=== PATIENT | female | born 1950 | race Caucasian/White ===

== ENCOUNTER 2016-09-19 13:17 | Outpatient (CLI) | payer MEDICARE | END 2016-09-19 13:18 | disposition home or self-care (01) | DX: M16.12 Unilateral primary osteoarthritis, left hip (principal); M25.552 Pain in left hip ==

== ENCOUNTER 2018-01-28 18:50 | Outpatient (CLI) | payer MEDICARE ==
--- NOTE | 2018-01-29 10:38 | Ultrasound Report ---
Procedure Date: 01/28/2018 Accession Number: [id number] / [id number] Procedure: US - Pelvic w/Transvaginal CPT Code: FULL RESULT: EXAM: Pelvic w/Transvaginal DATE: 01/28/2018 8:11 PM CLINICAL HISTORY: UNINARY TRACT INFECTION,RETENTION OF URINE,UNSPECI COMPARISON: 12/24/2015 TECHNIQUE: Realtime transabdominal imaging performed to identify the uterus and adnexa and as an overview of other pelvic structures, followed by transvaginal imaging for better assessment of the endometrium and/or adnexa, with static image documentation. FINDINGS: Uterus: 6.6 x 4.9 x 3.2 cm, volume 54 cc. Anteverted position. Normal overall size and echotexture. Masses: Anterior intramural calcification, likely representing a degenerated leiomyoma. Endometrium: 3 mm. Normal. Cervix: Unremarkable. Right Ovary/Adnexa: 1.8 x 0.9 x 0.9 cm, volume 1 cc. Normal echotexture. Blood flow is present. No adnexal mass is seen. Left Ovary/Adnexa: 1.8 x 1.4 x 0.9 cm, volume 1 cc. Normal echotexture. Blood flow is present. No adnexal mass is seen. Free Fluid: None. Other: None. IMPRESSION: Anterior degenerated leiomyoma. RAD[facility]
== END 2018-01-28 18:51 | disposition home or self-care (01) ==
LOC: DI 18:50
PROVIDERS: ATTEND Specialist
DX: D25.9 Leiomyoma of uterus, unspecified (principal); N39.0 Urinary tract infection, site not specified; R33.9 Retention of urine, unspecified; R39.89 Other symptoms and signs involving the genitourinary system; R82.90 Unspecified abnormal findings in urine
CPT/HCPCS: 76830; 76856

== ENCOUNTER 2018-01-28 19:15 | Outpatient (CLI) | payer MEDICARE ==
--- NOTE | 2018-01-29 10:34 | Ultrasound Report ---
Procedure Date: 01/28/2018 Accession Number: [id number] / [id number] Procedure: US - Retroperitoneal CPT Code: FULL RESULT: EXAM: Retroperitoneal DATE: 01/28/2018 8:11 PM CLINICAL HISTORY: UTI, URINE RETENTION COMPARISON: None. TECHNIQUE: Real-time scanning was performed with static images obtained. FINDINGS: Right Kidney: 11.3 x 5.2 x 4.2 cm. Normal echotexture with no stones, contour-deforming masses, or hydronephrosis. Left Kidney: 10.9 x 6.5 x 5.5 cm. Normal echotexture with no stones, contour-deforming masses, or hydronephrosis.] Bladder: Bilateral jets seen. The prevoid bladder volume was 310 cc. The postvoid bladder volume was 20 cc. IMPRESSION: Normal renal ultrasound. [facility]
== END 2018-01-28 23:59 | disposition home or self-care (01) ==
LOC: DI 19:15
PROVIDERS: ATTEND Specialist
DX: N39.0 Urinary tract infection, site not specified (principal); R33.9 Retention of urine, unspecified; R39.89 Other symptoms and signs involving the genitourinary system; R82.90 Unspecified abnormal findings in urine
CPT/HCPCS: 76770

== ENCOUNTER 2018-07-17 09:55 | Outpatient (CLI) | payer MEDICARE | END 2018-07-17 09:56 | disposition EMS.NT | LOC: EMS 09:55 | PROVIDERS: ATTEND Surgery | DX: R03.0 Elevated blood-pressure reading, without diagnosis of hypertension (principal) ==

== ENCOUNTER 2018-10-02 14:10 | Outpatient (CLI) | payer MEDICARE, OTHER ==
--- NOTE | 2018-10-04 16:42 | XRAY Report ---
Reason: PAIN OF TOE OF LEFT FOOT Procedure Date: 10/02/2018 Accession Number: [id number] / [id number] Procedure: XR - Toe(s) LT CPT Code: FULL RESULT: EXAM: LEFT TOE RADIOGRAPHY EXAM DATE: 10/02/2018 02:32 PM. CLINICAL HISTORY: PAIN OF TOE OF LEFT FOOT. COMPARISON: None. TECHNIQUE: 3 views. FINDINGS: Bones: Normal. No fracture or bone lesion. Joints: Normal. No subluxations. Soft Tissues: Normal. No soft tissue swelling. IMPRESSION: Normal toe radiography. [facility]
== END 2018-10-02 14:11 | disposition home or self-care (01) ==
LOC: DI 14:10
PROVIDERS: ATTEND Family Medicine
DX: M79.675 Pain in left toe(s) (principal)
CPT/HCPCS: 73660

== ENCOUNTER 2019-02-18 15:06 | Outpatient (CLI) | payer MEDICARE, OTHER ==
--- NOTE | 2019-02-18 23:57 | XRAY Report ---
Reason: COUGH Procedure Date: 02/18/2019 Accession Number: [id number] / [id number] Procedure: XR - Chest 2 View X-Ray CPT Code: 00249 FULL RESULT: EXAM: CHEST RADIOGRAPHY EXAM DATE: 02/18/2019 03:23 PM. CLINICAL HISTORY: COUGH. COMPARISON: None. TECHNIQUE: 2 views. FINDINGS: Lungs/Pleura: No focal opacities evident. No pleural effusion. No pneumothorax. Normal volumes. Mediastinum: Heart and mediastinal contours are unremarkable. Other: None. IMPRESSION: Normal 2-view chest radiography. RAD[facility]
== END 2019-02-18 15:07 | disposition home or self-care (01) ==
LOC: DI 15:06
PROVIDERS: ATTEND Nurse Practitioner Family
DX: R05 Cough (principal)
CPT/HCPCS: 71046

== ENCOUNTER 2019-04-06 08:40 | Outpatient (CLI) | payer MEDICARE, OTHER ==
--- NOTE | 2019-04-07 13:10 | XRAY Report ---
Reason: CERVICALGIA Procedure Date: 04/06/2019 Accession Number: [id number] / [id number] Procedure: XRS - Cervical Spine 2 View CPT Code: FULL RESULT: EXAM: CERVICAL SPINE RADIOGRAPHY EXAM DATE: 04/06/2019 08:57 AM. CLINICAL HISTORY: Cervicalgia. Large heavy object fell on patient's neck on right side. Neck pain. Point tenderness over C6 and C7. COMPARISONS: None. TECHNIQUE: 3 views. FINDINGS: Alignment: Slight levoscoliosis of the cervical spine. Bones: No acute fracture. Relative lucent area seen overlying the right C4 and C5 transverse processes. Findings not confirmed on the lateral view. Visualized odontoid is intact. Degenerative spurring. Disks: Mild to moderate multilevel disk space narrowing of the cervical spine greatest at C4-C5, C5-C6 and C6-C7. Facets: Mild cervical facet arthropathy. Soft Tissues: Prevertebral soft tissue are normal. Lung apices are clear. IMPRESSION: 1. No acute cervical spine abnormalities are identified. 2. Degenerative changes of the cervical spine. 3. Relative lucent area overlying the right C4 and C5 transverse processes. Findings which may be artifact related to the levoscoliosis. Osseous lucent lesions not excluded. If further detail is warranted, consider CT cervical spine. RAD[facility]
== END 2019-04-06 08:41 | disposition home or self-care (01) ==
LOC: DI.S 08:40
PROVIDERS: ATTEND Nurse Practitioner Family
DX: M50.321 Other cervical disc degeneration at C4-C5 level (principal); M47.812 Spondylosis without myelopathy or radiculopathy, cervical region
CPT/HCPCS: 72040

== ENCOUNTER 2019-10-10 14:55 | Outpatient (CLI) | payer MEDICARE, OTHER ==
--- NOTE | 2019-10-11 15:09 | XRAY Report ---
Reason: PAIN IN RIGHT HIP Procedure Date: 10/10/2019 Accession Number: [id number] / [id number] Procedure: XR - Hip w/Pelvis 2-3V RT CPT Code: Final Report FULL RESULT: EXAM: RIGHT HIP RADIOGRAPHY EXAM DATE: 10/10/2019 03:32 PM. CLINICAL HISTORY: PAIN IN RIGHT HIP. COMPARISON: None. TECHNIQUE: 2 views. FINDINGS: Bones: Normal. No fractures or bone lesion. Joints: Normal. No dislocation. The hip joint space is preserved. Soft Tissues: Normal. No soft tissue swelling. IMPRESSION: Normal right hip radiography. [facility]
== END 2019-10-10 14:56 | disposition home or self-care (01) ==
LOC: DI 14:55
PROVIDERS: ATTEND Nurse Practitioner Family
DX: M25.551 Pain in right hip (principal)

== ENCOUNTER 2020-01-05 11:38 | Outpatient (CLI) | payer MEDICARE, OTHER ==
--- NOTE | 2020-01-06 00:28 | Ultrasound Report ---
Reason: URINE RETENTION, HEMATURIA Procedure Date: 01/05/2020 Accession Number: [id number] / [id number] Procedure: US - Retroperitoneal CPT Code: Final Report FULL RESULT: EXAM: RENAL ULTRASOUND EXAM DATE: 01/05/2020 11:58 AM. CLINICAL HISTORY: URINE RETENTION, HEMATURIA. COMPARISON: RETROPERITONEAL 01/28/2018 7:30 PM. TECHNIQUE: Real-time scanning was performed with static images obtained. FINDINGS: Right Kidney: 10.9 x 4.5 x 4.5 cm. Normal echotexture with no stones, contour-deforming masses, or hydronephrosis. Left Kidney: 10.8 x 5.5 x 5.1 cm. Normal echotexture with no stones, contour-deforming masses, or hydronephrosis. Bladder: Bilateral jets seen. The prevoid bladder volume was 371 cc. The postvoid bladder volume was 97 cc. Other: None. IMPRESSION: Normal kidneys. 97 mL postvoid residual. No focal bladder lesion appreciated. RADIA
== END 2020-01-05 11:39 | disposition home or self-care (01) ==
LOC: DI 11:38
PROVIDERS: ATTEND Specialist
DX: R33.9 Retention of urine, unspecified (principal); R31.9 Hematuria, unspecified
CPT/HCPCS: 76770

== ENCOUNTER 2020-01-23 08:00 | Outpatient (CLI) | payer MEDICARE, OTHER | END 2020-01-23 23:59 | disposition home or self-care (01) | LOC: LAB.R 08:00 | PROVIDERS: ATTEND Family Medicine | DX: Z76.89 Persons encountering health services in other specified circumstances (principal); Z20.828 Contact with and (suspected) exposure to other viral communicable diseases | CPT/HCPCS: 81599 ==

== ENCOUNTER 2021-01-10 16:38 | Outpatient (CLI) | payer MEDICARE, OTHER ==
--- NOTE | 2021-01-11 09:42 | Ultrasound Report ---
PROCEDURE: Retroperitoneal INDICATIONS: RECURRENT UTI TECHNIQUE: Real-time scanning was performed of the retroperitoneal organs, with image documentation. COMPARISON: None. FINDINGS: Kidneys: Kidneys are normal in size. Right kidney measures 10 cm long; left kidney measures 10.4 cm long. Right renal cortical thickness is 1.4 cm; left renal cortical thickness is 1.4 cm. No solid masses, or nephrolithiasis. Mild bilateral pelviectasis is seen more prominent on the right side. Prevoid bladder volume is 246.5 cc. Post void residual is 117.3 cc. No gross bladder wall abnormality is seen. Bilateral ureteral jets are seen. IMPRESSION: 1. Right worse than left bilateral mild renal pelviectasis. No solid mass or nephrolithiasis is seen. 2. Moderate amount of bladder postvoid residual. No bladder wall thickening or discrete bladder wall mass. Reviewed by: Rito Vera MD on 01/11/2021 9:41 AM PDT Approved by: Rito Vera MD on 01/11/2021 9:41 AM PDT Station ID: [id number]
== END 2021-01-10 16:39 | disposition home or self-care (01) ==
LOC: DI 16:38
PROVIDERS: ATTEND Specialist
DX: N28.89 Other specified disorders of kidney and ureter (principal)

== ENCOUNTER 2021-09-07 12:13 | Outpatient (CLI) | payer MEDICARE, OTHER ==
--- NOTE | 2021-09-07 13:06 | XRAY Report ---
PROCEDURE: Hip w/Pelvis 2-3V LT INDICATIONS: LEFT HIP JOINT PAIN TECHNIQUE: AP pelvis with lateral view(s) of the left hip(s). COMPARISON: 10/10/2019, 09/19/2016 FINDINGS: Bones: No fractures or dislocations. Pelvic ring appears intact. No suspicious bony lesions. There is mild to moderate superior joint space narrowing seen involving the left hip. There is associ ated remodeling change, with subchondral sclerosis and osteophyte formation. Milder degenerative louis ges are seen of the contralateral right hip. Soft tissues: The visualized bowel gas pattern is normal. No suspicious soft tissue calcifications. IMPRESSION: Mild to moderate left hip degenerative change can be seen by plain film. If it would be helpful for clinical management decision making, please consider a dedicated hip MRI f or further evaluation (assuming that there is no contraindication). This should be performed accordi ng to the arthrogram protocol, if there is strong clinical concern for a labral abnormality. Reviewed by: Henry Shaw MD on 09/07/2021 12:05 PM [facility] Approved by: Henry Shaw MD on 09/07/2021 12:05 PM [facility] Station ID: [id number]
== END 2021-09-07 12:14 | disposition home or self-care (01) ==
LOC: DI.S 12:13
PROVIDERS: ATTEND Nurse Practitioner Family
DX: M16.12 Unilateral primary osteoarthritis, left hip (principal)

== ENCOUNTER 2022-08-28 16:15 | Outpatient (CLI) | payer MEDICARE, OTHER ==
--- NOTE | 2022-08-28 17:23 | XRAY Report ---
PROCEDURE: Chest 2 View X-Ray INDICATIONS: COUGH/CHEST PAIN TECHNIQUE: 2 views of the chest were acquired. COMPARISON: Chest x-ray 2 views, 05/23/2022. FINDINGS: Surgical changes and devices: There are surgical clips in the left breast. Lungs and pleura: Subtle infiltrates in the peripheral lower lobes near the costophrenic angles. No pleural effusions or pneumothorax. Biapical scars. Mediastinum: Mediastinal contours are normal. Heart size is normal. Bones and chest wall: No suspicious bony abnormalities. Soft tissues appear unremarkable. IMPRESSION: Subtle infiltrates in the peripheral aspect of the lower lobes bilaterally. If clinical symptoms pers ist, CT is suggested for follow-up. Reviewed by: Champ Bui MD on 08/28/2022 5:21 PM PST Approved by: Champ Bui MD on 08/28/2022 5:21 PM PST Station ID: [id number]
== END 2022-08-28 23:59 | disposition home or self-care (01) ==
LOC: DI.S 16:15
PROVIDERS: ATTEND Family Medicine
DX: R05.9 Cough, unspecified (principal); R07.9 Chest pain, unspecified; R91.8 Other nonspecific abnormal finding of lung field

== ENCOUNTER 2022-10-02 12:53 | Outpatient (CLI) | payer MEDICARE, OTHER ==
--- NOTE | 2022-10-02 15:43 | CT Report ---
PROCEDURE: CHEST WO INDICATIONS: COUGH TECHNIQUE: Noncontrast 1mm axial images were acquired from the pulmonary apices to the posterior costophrenic an gles. Axial 5 mm soft tissue kernel reconstructions were performed as well as 8 mm axial MIP and cor onal and sagittal 5 mm reformations. For radiation dose reduction, the following was used: automate d exposure control, adjustment of mA and/or kV according to patient size. COMPARISON: None FINDINGS: Image quality: Excellent. Lungs and pleura: Calcified granuloma, posterior left lower lobe, image 190/4. 4 mm noncalcified pul monary nodule, right apex, image 47/4. No acute air space opacities. No pleural effusions or pneumot horax. Central and peripheral airways are patent and normal in caliber. Mediastinum: Heart size is normal. No pericardial effusion. No mediastinal adenopathy by size crit eria. Thoracic aorta and central pulmonary arteries are normal in size. Esophagus is normal in kayode yo. No hiatal hernia. Bones and chest wall: No suspicious bony lesions. No vertebral body compression fractures. No axil lashonda or supraclavicular adenopathy by size criteria. The thyroid is normal in size and there are no incidental findings. Abdomen: Visualized upper abdominal solid organs and bowel loops appear normal in the absence of con trast. IMPRESSION: 1. No evidence acute pulmonary process. 2. Chronic granulomatous disease. 3. 4 mm noncalcified right apical pulmonary nodule. Comment: As per the Fleischner Society criteria,If the patient is at low risk for lung cancer, no fur ther follow-up is required. If the patient has risk factors for lung cancer, repeat evaluation with a low-dose noncontrast chest CT may be obtained in 12 months time. If the nodule is stable at that poi nt, no further follow-up is required. CLINICAL RECOMMENDATION STATEMENTS: In patients <35 years with an ITN detected on CT, MRI, or extrathyroidal ultrasound, the Committee re commends further evaluation with dedicated thyroid ultrasound if the nodule is "e1 cm and has no susp icious imaging features, and if the patient has normal life expectancy. In patients "e35 years with an ITN detected on CT, MRI, or extrathyroidal ultrasound, the Committee r ecommends further evaluation with dedicated thyroid ultrasound if the nodule is "e1.5 cm and has no s uspicious imaging features, and if the patient has normal life expectancy. (ACR, 2014) Reviewed by: Gabe Pond MD on 10/02/2022 3:42 PM PST Approved by: Gabe Pond MD on 10/02/2022 3:42 PM PST Station ID: [id number]
== END 2022-10-02 12:54 | disposition home or self-care (01) ==
LOC: DI 12:53
PROVIDERS: ATTEND Family Medicine
DX: R91.1 Solitary pulmonary nodule (principal); D71 Functional disorders of polymorphonuclear neutrophils

== ENCOUNTER 2023-03-11 12:34 | Outpatient (CLI) | payer MEDICARE, OTHER ==
--- NOTE | 2023-03-11 13:21 | XRAY Report ---
PROCEDURE: Cervical Spine 2 View INDICATIONS: NECK PAIN TECHNIQUE: 3 view(s) of the cervical spine were acquired. COMPARISON: X-ray cervical spine 04/18/2020 FINDINGS: Bones: No fractures or dislocations to the T2 level. The lateral masses of C1 appear intact on the odontoid view. No suspicious bony lesions. Multilevel degenerative changes of the cervical spine. T here is anterior osteophytosis. There is facet and uncovertebral arthropathy. Multilevel disc height loss and endplate degenerative changes are worse at C5-C6. Soft tissues: No prevertebral soft tissue swelling. IMPRESSION: Multilevel degenerative changes of the cervical spine, most pronounced at C5-C6. Reviewed by: José Miguel Oliveira MD on 03/11/2023 1:20 PM PDT Approved by: José Miguel Oliveira MD on 03/11/2023 1:20 PM PDT Station ID: [id number]
== END 2023-03-11 12:35 | disposition home or self-care (01) ==
LOC: DI.S 12:34
PROVIDERS: ATTEND Physician Assistant
DX: M47.812 Spondylosis without myelopathy or radiculopathy, cervical region (principal)

== ENCOUNTER 2023-08-25 14:03 | Outpatient (CLI) | payer MEDICARE, OTHER ==
--- NOTE | 2023-08-25 14:40 | DEXA Report ---
PROCEDURE: Dexa Spine and/or Hip INDICATIONS: POST MENOPAUSAL TECHNIQUE: Dual energy x-ray absorptiometry (DXA) was performed on a mBlox System. Regions measur ed are the AP Spine, femoral neck, and if needed forearm. COMPARISON: None FINDINGS: Lumbar Spine: Bone Mineral Density 0.940 g/cm/cm,T score -2.0. Left Femoral Neck: Bone Mineral Density 0.656 g/cm/cm, T score -2.7. Left Hip: Bone Mineral Density 0.77 g/cm/cm,T score -1.8. (T score greater or equal to -1.0: NORMAL) (T score from -1.1 to -2.4: OSTEOPENIA) (T score less than or equal to -2.5 to: OSTEOPOROSIS) Impression: By WHO criteria, this patient has osteoporosis of the femoral neck with osteopenia in the lumbar spin e and left hip. Patients with diagnosis of osteoporosis or osteopenia should have regular bone mineral density assess ment. For those eligible for Medicare, routine testing is allowed once every 2 years. Testing frequ ency can be increased for patients who have rapidly progressing disease or for those who are receivin g medical therapy to restore bone mass. Reviewed by: Kelley Osuna MD on 08/25/2023 2:39 PM PST Approved by: Kelley Osuna MD on 08/25/2023 2:39 PM PST Station ID: [id number]
== END 2023-08-25 14:04 | disposition home or self-care (01) ==
LOC: DI 14:03
PROVIDERS: ATTEND Physician Assistant
DX: Z78.0 Asymptomatic menopausal state (principal); M81.0 Age-related osteoporosis without current pathological fracture

== ENCOUNTER 2023-11-03 07:00 | Outpatient (CLI) | payer MEDICARE, OTHER ==
[2023-11-03 22:33] LABS: BACTERIAL VAGINOSIS DNA NEGATIVE (NEGATIVE); CANDIDA GLABRATA DNA NEGATIVE (NEGATIVE); CANDIDA GROUP DNA NEGATIVE (NEGATIVE); CANDIDA KRUSEI DNA NEGATIVE (NEGATIVE); TRICHOMONAS VAGINALIS DNA NEGATIVE (NEGATIVE)
== END 2023-11-03 23:59 | disposition home or self-care (01) ==
LOC: LAB.S 07:00
PROVIDERS: ATTEND Registered Nurse
DX: R30.0 Dysuria (principal)
CPT/HCPCS: 81514; 87086

== ENCOUNTER 2024-01-25 08:00 | Outpatient (CLI) | payer MEDICARE, OTHER | END 2024-01-25 23:59 | disposition home or self-care (01) | LOC: LAB.S 08:00 | PROVIDERS: ATTEND Physician Assistant Medical | DX: N30.90 Cystitis, unspecified without hematuria (principal) | CPT/HCPCS: 87077; 87086 ==

== ENCOUNTER 2024-02-04 08:00 | Outpatient (CLI) | payer MEDICARE, OTHER | END 2024-02-04 23:59 | disposition home or self-care (01) | LOC: LAB.N 08:00 | PROVIDERS: ATTEND Registered Nurse | DX: R82.79 Other abnormal findings on microbiological examination of urine (principal); N30.90 Cystitis, unspecified without hematuria; R30.0 Dysuria | CPT/HCPCS: 36415; 80053; 85025; 87077; 87086 ==

== ENCOUNTER 2024-02-04 08:10 | Outpatient (CLI) | payer MEDICARE, OTHER ==
[2024-02-04 15:08] LABS: BASOPHILS % (AUTO) 0.3 %; EOSINOPHILS # (AUTO) 0.1 10^3/uL (0.0-0.7); EOSINOPHILS % (AUTO) 1.8 %; HCT - HEMATOCRIT 40.4 % (37.0-47.0); HGB - HEMOGLOBIN 13.3 g/dL (12.0-16.0); LYMPHOCYTES # (AUTO) 1.5 10^3/uL (1.5-3.5); LYMPHOCYTES % (AUTO) 42.6 %; MEAN CORPUSCULAR HEMOGLOBIN 29.8 pg (27.0-31.0); MEAN CORPUSCULAR HGB CONC 32.9 g/dL (32.0-36.0); MEAN CORPUSCULAR VOLUME 90.4 fL (81.0-99.0); MEAN PLATELET VOLUME 10.3 fL (7.9-10.8); MONOCYTES # (AUTO) 0.5 10^3/uL (0.0-1.0); MONOCYTES % (AUTO) 14.7 %; NEUTROPHILS # (AUTO) 1.4 10^3/uL (1.5-6.6); NEUTROPHILS % (AUTO) 40.3 %; PLT - PLATELET COUNT 238 10^3/uL (130-450); RED BLOOD COUNT 4.47 10^6/uL (4.20-5.40); RED CELL DISTRIBUTION WIDTH 13.5 % (12.0-15.0); WHITE BLOOD COUNT 3.4 x10^3/uL (4.8-10.8)
[2024-02-04 15:25] LABS: ALBUMIN 4.6 g/dL (3.2-5.5); ALBUMIN/GLOBULIN RATIO 1.9 (1.0-2.2); BILIRUBIN,TOTAL 0.6 mg/dL (0.2-1.0); CALCIUM 10.1 mg/dL (8.5-10.3); CREATININE 0.9 mg/dL (0.6-1.3); POTASSIUM 4.5 mmol/L (3.5-4.5)
== END 2024-02-04 08:11 | disposition home or self-care (01) ==
LOC: LAB.S 08:10
PROVIDERS: ATTEND Registered Nurse
DX: R82.79 Other abnormal findings on microbiological examination of urine (principal); N30.90 Cystitis, unspecified without hematuria; R30.0 Dysuria
CPT/HCPCS: 36415; 80053; 85025

== ENCOUNTER 2024-02-11 07:00 | Outpatient (CLI) | payer MEDICARE, OTHER | END 2024-02-11 23:59 | disposition home or self-care (01) | LOC: LAB.S 07:00 | PROVIDERS: ATTEND Physician Assistant Medical | DX: R30.0 Dysuria (principal) | CPT/HCPCS: 87086 ==